=== PATIENT | male | born 1940 | race Caucasian/White ===

== ENCOUNTER 2024-06-27 16:17 | Emergency (ER) | payer MEDICARE, BC, SELFPAY ==
[2024-06-27 16:21] VITALS: BP 197/111
[2024-06-27 16:57] LABS: % Basophils 0.7 % (0-2); % Eosinophils 4.9 % (0-6); % Immature Granulocytes 0.2 % (0-0.5); % Lymphocytes 22.8 % (20.5-51.1); % Monocytes 9.4 % (1.7-9.3); Absolute Basophils 0.1 10^3/uL (0-0.2); Absolute Eosinophils 0.4 10^3/uL (0-0.7); Absolute Lymphocytes 1.9 10^3/uL (1.2-3.4); Absolute Monocytes 0.8 10^3/uL (0.1-0.6); Absolute Neutrophils 5.1 10^3/uL (1.4-6.5); Hemoglobin 15.4 g/dL (13.0-18.0); Mean Corpuscular Hgb 30.4 pg (27.0-31.0); Mean Platelet Volume 9.5 fL (7.4-10.4); Nucleated Red Blood Cells % 0 % (-); Platelet Count 253 10^3/uL (130-400); Red Blood Cell Count 5.06 10^6/uL (4.70-6.10); White Blood Cell Count 8.2 10^3/uL (4.8-10.8)
[2024-06-27 17:11] LABS: ALT (SGPT) 23 U/L (0-50); AST (SGOT) 26 U/L (17-59); Albumin 4.5 g/dl (3.5-5.0); Alkaline Phosphatase 84 U/L (38-126); Blood Urea Nitrogen 21 mg/dl (9-20); Calcium 9.1 mg/dl (8.4-10.2); Carbon Dioxide 24 mmol/L (22-30); Chloride 109 mmol/L (98-107); Glucose 93 mg/dl (70-99); Potassium 3.9 mmol/L (3.5-5.1); Sodium 141 mmol/L (135-145); Total Protein 7.1 g/dl (6.3-8.2); eGFR > 60.00
[2024-06-27 17:54] VITALS: BP 192/78
[2024-06-27 17:57] VITALS: BMI 22.0
[2024-06-27 18:00] VITALS: BP 164/72
[2024-06-27 19:00] VITALS: BP 158/72
[2024-06-27 20:00] VITALS: BP 165/70
--- NOTE | 2024-06-27 20:54 | ED.GENMED ---
History of Present Illness
General
Chief Complaint: Blood Pressure Problem
Time Seen by Provider: 06/27/24 20:11
History of Present Illness
History of Present Illness:
84-year-old male with newly diagnosed Parkinson's disease presenting to the emergency department for elevated blood pressure. Patient went to see the neurologist today, was found to have high blood pressure and told to come to. Denies any
underlying history of high blood pressure, does not take any medications, however does note family history. Does report that he has had some stress, with the new diagnosis of Parkinson's as well as some social stressors at home. He denies any
chest pain, difficulty breathing, visual changes, headache, weakness or numbness to extremities. Denies additional acute medical complaint
Past History
Past History
ED Past Medical History: GERD and Hypercholesterolemia
ED Past Surgical History: Other (Previous hernia surgery)
Social History
Tobacco: Non-smoker
Alcohol: Occasional
Drug: None
Personal:
Living: with family
Family History
Family History: Other (Noncontributory)
Phy Exam
Physical Exam
Physical Exam:
General: Well-appearing, no clinical signs of dehydration, nontoxic and in no acute distress
HEENT: protecting airway
Neck: appears supple
CV: Normal heart rate, regular rhythm
Resp: No accessory muscle use, no increased work of breathing
Abd: Soft and non-distended, no tenderness to palpation, normal bowel sounds
Extremities: No deformities, no swelling
Neuro: alert, no focal neurologic deficit
: deferred
Rectal: deferred
Psych: Normal affect
Skin: Intact
Course
Orders/Labs/Results
Orders:
Orders
06/27/24 16:28
EKG [Electrocardiogram (*1)] Urgent
Reason for Study: Hypertension, Benign
06/27/24 16:29
EKG- Treatment ONCE
06/27/24 16:38
Complete Blood Count/With Diff Urgent
Comprehensive Metabolic Panel Urgent
Abnormal Lab Results
06/27/24
16:38
Absolute Monos (auto) 0.8 H 10^3/uL
(0.1-0.6)
Monocytes % 9.4 H %
(1.7-9.3)
Chloride 109 H mmol/L
(98-107)
BUN 21 H mg/dl
(9-20)
06/27/24 16:38
06/27/24 16:38
Vital Signs
Initial and Last Documented VS:
Initial Vital Signs
Temp Pulse Resp BP Pulse Ox
97.7 F 70 18 197/111 97
06/27/24 16:21 06/27/24 16:21 06/27/24 16:21 06/27/24 16:21 06/27/24 16:21
Last Documented Vital Signs
Temp Pulse Resp BP Pulse Ox
97.7 F 63 13 165/70 96
06/27/24 16:21 06/27/24 20:00 06/27/24 20:00 06/27/24 20:00 06/27/24 20:00
MDM/Problems Addressed
MDM/Problems Addressed:
84-year-old male with newly diagnosed early onset Parkinson's presenting for elevated blood pressure. Vital signs on arrival significant for high blood pressure.
On exam patient is resting comfortably, no acute distress or discomfort. Patient is currently asymptomatic EKG obtained on arrival, nonischemic, no arrhythmia. No focal neurologic deficits, without concern for central neurologic process. Labs
obtained prior to my assessment, unremarkable. Given asymptomatic nature and reassuring workup, without present concern for hypertensive urgency or emergency. Patient does note some family history, so ultimately suspect combination of underlying
history as well as increased stress which may be contributing. Will start patient on low-dose amlodipine, however advised close follow-up with PCP next week for blood pressure recheck and possible medication adjustment. Patient is agreeable to
this plan. Stable for discharge. Return precautions discussed and patient verbalized understanding
*EKG
Interpreted by ED Provider?: Yes
EKG Intrepretation Date: 06/27/24
EKG Intrepretation Time: 20:58
Interpretation: normal
Heart Rate: 67
Rate: normal
Rhythm: sinus
[place]: normal axis
Interval: normal interval
QRS Pattern: normal QRS
Ischemia: no ischemia
*Critical Care Note
Total Time (30-74mins, 75-104mins- exclusive of procedures): Not Applicable
ED Attending Note
-
Portions of this chart may have been created with voice recognition software.� Occasional wrong word or��sound alike� substitutions may have occurred due to the inherent limitations of voice recognition software.
Discharge Plan
Departure
Prescriptions:
No Action
atorvastatin 10 MG tablet
10 mg PO DAILY
omeprazole 20 MG tablet,delayed release (DR/EC)
20 mg PO DAILY
famotidine 20 MG tablet
20 mg PO DAILY PRN (Reason: gerd)
fluticasone propionate 1 SPRAY spray,suspension
1 spray intranasal DAILY PRN (Reason: CONGESTION)
polyethylene glycol 3350 17 GRAMS powder in packet
17 grams PO DAILYPRN PRN (Reason: constipation) Qty: 1 0RF
acetaminophen [Tylenol Extra Strength] 500 MG tablet
1,000 mg PO Q6HPRN PRN (Reason: mild pain) Qty: 1 0RF
ibuprofen 200 MG tablet
400 mg PO Q6HPRN PRN (Reason: moderate pain) Qty: 1 0RF
escitalopram oxalate 10 mg Tablet
10 mg PO DAILY
tramadol 50 mg tablet
50 mg PO Q6HPRN PRN (Reason: severe pain/breakthrough pain) Qty: 10 0RF
calcium carbonate [Calcium 500] 500 mg calcium (1,250 mg) Tablet
500 mg PO DAILY
Referrals:
Ernesto Liu MD [Family Provider] -
Interventions
Interventions:
*Risk Screen - Suicide Last Done: 06/27/24 16:21
*General Assessment Last Done: 06/27/24 16:21
*Neglect/Abuse Screening Last Done: 06/27/24 17:53
*ED- Fall Risk Assessment Last Done: 06/27/24 17:53
*ED COVID-19 Vaccine History Last Done: 06/27/24 17:53
ED- Cardiac Assessment Last Done: 06/27/24 17:53
ED- Neurological Assessment Last Done: 06/27/24 17:53
ED- Pulmonary Assessment Last Done: 06/27/24 17:53
Discharge Date and Time
Print Language: ROMANIAN
[2024-06-27 21:24] VITALS: BP 145/77
[2024-06-27] MEDS: NORVASC 5 MG PO (21:24)
== END 2024-06-27 21:29 | disposition home or self-care (01) ==
LOC: EMR 16:17
PROVIDERS: Emergency Medicine; EMERGENCY PHYSICIAN Student in an Organized Health Care Education/Training Program; FAMILY PHYSICIAN Family Medicine
DX: I10 Essential (primary) hypertension (principal); G20.A1 Parkinson's disease without dyskinesia, without mention of fluctuations; E78.00 Pure hypercholesterolemia, unspecified; Z65.8 Other specified problems related to psychosocial circumstances
CPT/HCPCS: 99284; 80053; 85025; 93005

== ENCOUNTER 2024-09-10 10:15 | Outpatient (RCR) | payer MEDICARE, BC, SELFPAY | END 2024-09-10 23:59 | disposition home or self-care (01) | LOC: RPT 10:15 | PROVIDERS: ATTENDING PHYSICIAN Psychiatry & Neurology Neurology; FAMILY PHYSICIAN Family Medicine | DX: G20.A1 Parkinson's disease without dyskinesia, without mention of fluctuations (principal); Z73.6 Limitation of activities due to disability | CPT/HCPCS: 97110; 97112; 97116; 97163; 97167; 97530; 97535 ==

== ENCOUNTER 2024-10-08 10:02 | Outpatient (RCR) | payer MEDICARE, BC, SELFPAY | END 2024-10-08 23:59 | disposition home or self-care (01) | LOC: RPT 10:02 | PROVIDERS: ATTENDING PHYSICIAN Psychiatry & Neurology Neurology; FAMILY PHYSICIAN Family Medicine | DX: G20.A1 Parkinson's disease without dyskinesia, without mention of fluctuations (principal); Z73.6 Limitation of activities due to disability; R26.2 Difficulty in walking, not elsewhere classified | CPT/HCPCS: 97110; 97112; 97116; 97530; 97535 ==

== ENCOUNTER 2024-10-22 11:23 | Outpatient (RCR) | payer MEDICARE, BC, SELFPAY | END 2024-10-22 23:59 | disposition home or self-care (01) | LOC: RPT 11:23 | PROVIDERS: ATTENDING PHYSICIAN Psychiatry & Neurology Neurology; FAMILY PHYSICIAN Family Medicine | DX: G20.A1 Parkinson's disease without dyskinesia, without mention of fluctuations (principal); Z73.6 Limitation of activities due to disability; R26.2 Difficulty in walking, not elsewhere classified | CPT/HCPCS: 97110; 97112; 97530; 97535 ==